=== PATIENT | male | born 1965 | race Caucasian/White ===

== ENCOUNTER 2017-04-01 06:46 | Day surgery (SDC) | payer BC ==
[~2017-04-01 06:46] MED LIST: KETOROLAC TROMETHAMINE 0.45% 4 DROP/0.4 ML DROPERETTE OD PRN; LIDOCAINE 3.5% OPH GEL/PF 1 ML/TUBE OD PRN
[2017-04-01] MEDS: TETRACAINE HCL 0.5% OPH SOLN 2 ML OD PRN ×3 (07:02→07:58)
[2017-04-01] MEDS: CYCLOPENTOLATE 0.2%/PHENYLEPHRINE 1% OPH SOLN 2 ML OD PRN ×3 (07:03→07:31)
[2017-04-01] MEDS: TROPICAMIDE 1% OPH SOLN 3 ML OD PRN ×3 (07:03→07:31)
[2017-04-01] MEDS: BESIFLOXACIN HCL 0.6% OPH SUSP 5 ML BOTTLE OD PRN ×3 (07:04→08:24)
[2017-04-01] MEDS ORDERED: EPINEPHRINE INJ/PF 1 MG/1 ML AMPULE ONE (07:15)
[2017-04-01] MEDS ORDERED: LIDOCAINE 1% INJ-PF (10 MG/ML) 30 ML SDV ONE (07:15)
[2017-04-01] MEDS ORDERED: CHONDR SU A NA/HYALUR INTRAOC KIT (SURGICARE) ONE (07:16)
[2017-04-01] MEDS ORDERED: MIDAZOLAM 2 MG/2 ML INJ ONE (07:26)
--- NOTE | 2017-04-02 11:37 | [facility] OPERATIVE REPORT E ---
[facility] Operative Report NAME: SALVATORE YOU AGE: 51Y DATE OF SURGERY: 04/01/2017 ROOM: PREOPERATIVE DIAGNOSIS: CATARACT, RIGHT EYE. POSTOPERATIVE DIAGNOSIS: CATARACT, RIGHT EYE. OPERATION: Cataract extraction with intraocular lens implant of the right eye. SURGEON: AVELINO SANTOS M.D. ANESTHESIA: Topical. PROCEDURE: After obtaining appropriate consent, the patient's right eye was prepped and draped in sterile fashion as well as the surgeon in a sterile manner and cataract surgery was started. First a paracentesis blade was used to make a small side-port incision. Viscoelastic was used to inflate the anterior chamber. Next a 2.4 mm incision was made with the paracentesis blade. A continuous capsulorrhexis incision was made using a cystotome and Utrata forceps. Following this hydrodissection was carried out to make the lens fully loose and mobile and it was rotated 90 degrees. Following this, a wbcqhl-som-zhkfvjg technique was used to phacoemulsify the lens with a CDE of 9.98. The remaining cortex was removed with irrigation/aspiration. Provisc was instilled into the capsular bag to inflate the bag. A SN60WF, 20.5 diopter lens was placed. The remaining viscoelastic material was removed with irrigation/aspiration. Following this, a 10-0 nylon suture was used to close the incision and it was found to be watertight. Vigamox was instilled in the eye and a protective shield was placed over the eye. The patient returned to the postoperative recovery in stable condition. DICTATING PHYSICIAN: AVELINO SANTOS M.D. [id number] PHY#: [id number] ID: [id number] JOB#: [id number] ACCT: [id number] cc:AVELINO SANTOS M.D. >
--- NOTE | 2017-04-02 17:47 | [facility] DISCHARGE SUMMARY E ---
[facility] Discharge Summary NAME: SALVATORE YOU AGE: 51Y ADMITTED: 04/01/2017 DISCHARGED: 04/01/2017 HOSPITAL COURSE: This is a 51-year-old male who underwent cataract extraction of the right eye. DIAGNOSIS: Cataract, right eye. INDICATIONS: He underwent surgery because he was having difficulty seeing the television. DISCHARGE INSTRUCTIONS: He should be on a regular diet. No bending at his waist. No heavy lifting. He should use his Besivance, Ilevro, and Durezol at 3 p.m. and 8 p.m. and sleep with a rigid shield. I will see him for his 1 day postoperative tomorrow. DICTATING PHYSICIAN: AVELINO SANTOS M.D. [id number] PHY#: [id number] ID: [id number] JOB#: [id number] ACCT: [id number] cc:AVELINO SANTOS M.D. >
== END 2017-04-01 09:11 | disposition home or self-care (01) ==
LOC: SC 06:46
PROVIDERS: ATTEND Internal Medicine
PROC: 08RJ3JZ Replacement of Right Lens with Synthetic Substitute, Percutaneous Approach (ICD-10-PCS; principal; 2017-04-01 08:00)
DX: H25.041 Posterior subcapsular polar age-related cataract, right eye (principal); H25.812 Combined forms of age-related cataract, left eye; F17.210 Nicotine dependence, cigarettes, uncomplicated
CPT/HCPCS: 66984; V2632; J2250; J3490 ×2; J0171; 142